=== PATIENT | male | born 1945 | race Caucasian/White ===

== ENCOUNTER 2017-01-15 04:25 | Inpatient (IN) | payer MEDICARE, OTHER ==
[2017-01-06 10:40] LABS: HEMATOCRIT 43.8 % (40.0-51.0); HEMOGLOBIN 15.1 g/dL (13.6-17.8)
[2017-01-06 10:52] LABS: BUN (BLOOD UREA NITROGEN) 16 MG/DL (6-23); CALCIUM, SERUM 8.5 MG/DL (8.5-10.4); CHLORIDE, SERUM 108 MMOL/L (96-112); CO2 (CARBON DIOXIDE) 29 MMOL/L (24-34); CREATININE 0.94 MG/DL (0.70-1.30); GFR AFRICAN AMERICAN 93 ML/MIN (>=60); GFR NON AFRICAN AMERICAN 80 ML/MIN (>=60); GLUCOSE, SERUM 95 MG/DL (60-99); SODIUM, SERUM 143 MMOL/L (135-148)
--- NOTE | ~2017-01-15 | OP ---
Record Of Operation [facility] [address] [place]. [address] NAME: FRANCHESKA GRAY : 43 STATUS : ADM IN PAT#: [id number] AGE: 72 ADM/REG DATE : 01/15/17 MR#: [id number] REPORT SERV DATE: 01/16/17 DICTATED BY: KANCHAN BAKER II DATE: 01/15/17 REPORT STATUS : Draft TRANSCRIBED BY: MODL DATE: 01/15/17 DATE OF PROCEDURE: 01/15/2017 PREOPERATIVE DIAGNOSES: 1. 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 2. Rxpx-nq-zfnhyuny cord compression, C3-4. 3. Multilevel severe degenerative disk disease without significant neck pain. 4. Skku-vg-fwqjuajm L1-L2 stenosis above the previous lumbar fusion. POSTOPERATIVE DIAGNOSES: 1. 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 2. Grmz-ii-toiheuwt cord compression, C3-4. 3. Multilevel severe degenerative disk disease without significant neck pain. 4. Ejxp-wh-afxemlhy L1-L2 stenosis above the previous lumbar fusion. PROCEDURE: 1. C5 corpectomy for anterior extradural decompression. 2. Interbody arthrodesis, C3-4, C4-5, C5-6. 3. Application of prosthetic device, C3-4, C4-5, C5-6. 4. Use of local autograft, allograft substitute, and bone marrow aspirate. 5. Use of the microscope. SURGEON: Kanchan Baker M.D. FLUIDS: 1200 mL LR. ESTIMATED BLOOD LOSS: 75 mL. DRAIN: One. COMPLICATIONS: None. ANTIBIOTIC: Preoperatively. IMPLANTS: Globus. PREOPERATIVE HISTORY: This is a very friendly 72-year-old male, who did very well following multilevel lumbar decompression and fusion. His back pain is much improved. His leg pain was much improved. However, he is now reporting weakness into thighs and legs. We discussed the pros and cons of surgery. He also reported his gait was abnormal and he was having balance issues. At this point, I felt that his symptoms could be consistent with myelopathy from a cervical spine. We obtained a cervical spine MRI, which did show severe cord compression. He overall did not have a significant amount of upper extremity complaints, but overall, I felt that his symptoms were most likely due to the cervical cord compression. However, given some complaints of weakness in his thighs, I thought there was a chance that this could be from stenosis just above his previous fusion. However, the Record Of Operation [facility] [address] [place]. [address] NAME: FRANCHESKA GRAY : 43 STATUS : ADM IN PAT#: [id number] AGE: 72 ADM/REG DATE : 01/15/17 MR#: [id number] REPORT SERV DATE: 01/16/17 DICTATED BY: KANCHAN BAKER II DATE: 01/15/17 REPORT STATUS : Draft TRANSCRIBED BY: MODL DATE: 01/15/17 stenosis does not appear to be that significant radiographically. I discussed with him that this was somewhat of a difficult decision, but overall, I felt that the preponderance of imaging and complaints were more consistent with cervical myelopathy. I did discuss, however, they could have some compression upon the conus, which could also explain symptoms. However, given the MRI appearance alone, I felt if he was not having cervical myelopathy at this point, I suspect that he would develop it in the next several years given the simple severe cord compression noted on the MRI. Overall after we discussed this and toss the options back and forth, we all felt the best option was to proceed with cervical surgery. I discussed with him the risks and the benefits of the surgery. We discussed the chance of difficulty swallowing as well as a chance of vocal cord paralysis. DESCRIPTION OF PROCEDURE: After informed consent was obtained, the patient was brought to the operating room at his request and general anesthesia achieved. He was placed in the supine position. The neck and iliac crest were prepped and draped in a sterile fashion. Next, the right-sided longitudinal incision was performed and the subperiosteal exposure was completed. I also during the positioning portion of the case felt that the C3-4 level should be included given the moderate cord compression. At this point, the dissection was performed and the [place] pins placed and the diskectomy now completed at C3-4 under microscopic visualization. The disk was removed and the endplates prepared with the curved curettes and the high-speed bur. The posterior vertebral body osteophytes were now removed. At this point, the disk was now removed at C4-5 and C5-6. The C4 and C6 endplates were now well prepared and parallel end plates were created. At this point, the corpectomy was initiated with the high-speed bur and Kerr[place] rongeurs. The double-action rongeurs were also used to harvest autograft for later use, but in the corpectomy device. At this point, the corpectomy was further carried out with the high-speed bur. The posterior longitudinal ligament was now identified. At this point, the posterior longitudinal ligament was removed from the inferior portion of C4 to the superior portion of C6. The severe spinal cord compression was now alleviated with the removal of this ligament and additional osteophytes. The new exiting nerve roots were now found to be well decompressed. At this point, the area was now irrigated. I was pleased with the corpectomy and anterior extradural decompression. Next, the corpectomy prosthetic device was then trialed and placed at C4-5 and C5-6. Multiplanar imaging confirmed acceptable placement of the implants. Next, the anterior fixation device was placed. Please note, this was a separate plate and screw construct. Two screws were then placed in the C3, C4, and C6. We then placed one static holding screw into the corpectomy prosthetic device. At this point, the multiplanar imaging confirmed acceptable placement of the implants. The deep drain was placed followed by standard closure, and the patient was extubated and transferred to PACU in stable condition. JJ/MODL Record Of Operation [address] [address] NAME: FRANCHESKA GRAY : 43 STATUS : ADM IN [facility]#: [id number] AGE: 72 ADM/REG DATE : 01/15/17 MR#: [id number] REPORT SERV DATE: 01/16/17 DICTATED BY: KANCHAN BAKER II DATE: 01/15/17 REPORT STATUS : Draft TRANSCRIBED BY: MODL DATE: 01/15/17 Kanchan Baker II, M.D. / [id number] CC: Jimi Muñiz II, M.D.
[~2017-01-15 04:25] MED LIST: ADVIL PO; ASAB PO; FLOMAX4 PO; IBU600 PO; LIOR10 PO; LOP25 PO; MSCONT15 PO; NEUR300 PO; NORCO1 TA1 PO; PCET PO; PRIN20 PO; PROSCAR5 PO; V2 PO; ZOCOR40 PO
[2017-01-17] MEDS ORDERED: V2 PO (09:04)
[2017-01-17] MEDS ORDERED: PERCOCET 10/3251 TAB PO (09:05)
== END 2017-01-17 10:15 | disposition home or self-care (01) | DRG 473 ==
LOC: SDC/OF 04:25 → PACU 09:32 → 3SO 10:34
PROVIDERS: Orthopaedic Surgery
PROC: 07DR3ZZ Extraction of Iliac Bone Marrow, Percutaneous Approach (ICD-10-PCS; 2017-01-15)
PROC: 4A11X4G Monitoring of Peripheral Nervous Electrical Activity, Intraoperative, External Approach (ICD-10-PCS; 2017-01-15)
PROC: 0RG20A0 Fusion of 2 or more Cervical Vertebral Joints with Interbody Fusion Device, Anterior Approach, Anterior Column, Open Approach (ICD-10-PCS; principal; 2017-01-15 07:15)
DX: M50.021 Cervical disc disorder at C4-C5 level with myelopathy (principal)
CPT/HCPCS: 80048; 82962; 85014; 85018; 87641; 88304; 88311; 93005; A9270-GY; C1713; J0690; J2250; J2370; J2405; J2710; J3010